=== PATIENT | male | born 1960 | race Caucasian/White ===

== ENCOUNTER → 2016-10-26 | Outpatient (CLI) | payer MEDICARE, OTHER ==
--- NOTE | 2016-10-26 14:32 | XR ---
EXAMINATION TYPE: XR lumbosacral spine min 4V DATE OF EXAM ORDERED: 10/26/2016 2:24 PM HISTORY: M54.17 radiculopathy. COMPARISON: None. FINDINGS: Vertebral body height and alignment are maintained. There is no evidence of spondylolysis or spondylolisthesis. There is hypertrophic spondylosis at L3-4, L4-5 and L5-S1. There is spondylosis deformans present at L3-4. The pedicles are intact. The facets are unremarkable. Note is made of calcification of the [place] aorta. IMPRESSION: 1. NO ACUTE OSSEOUS LESION. 2. DEGENERATIVE CHANGE.
== END | disposition home or self-care (01) ==
LOC: RADXRMAIN 14:06
PROVIDERS: ATTEND Internal Medicine
DX: M47.27 Other spondylosis with radiculopathy, lumbosacral region (principal)
CPT/HCPCS: 72110

== ENCOUNTER 2017-10-21 14:32 | Emergency (ER) | payer MEDICARE, OTHER ==
[2017-10-21 15:23] VITALS: TEMP 97.6
[2017-10-21 16:01] LABS: Basophils % (A) 1 %; Eosinophils # (A) 0.1 k/uL (0-0.7); Eosinophils % (A) 1 %; HCT 43.7 % (39.0-53.0); HGB 14.6 gm/dL (13.0-17.5); Lymphocytes # (A) 1.7 k/uL (1.0-4.8); Lymphocytes % (A) 21 %; MCHC 33.3 g/dL (31.0-37.0); MCV 83.8 fL (80.0-100.0); Mean Platelet Volume 7.7; Monocytes # (A) 0.5 k/uL (0-1.0); Monocytes % (A) 6 %; Neutrophils # (A) 5.9 k/uL (1.3-7.7); Neutrophils % (A) 70 %; Platelet Count 304 k/uL (150-450); RBC 5.21 m/uL (4.30-5.90); WBC 8.4 k/uL (3.8-10.6)
[2017-10-21 16:04] LABS: Appearance,Urine Clear (Clear); Bilirubin,Urine Negative (Negative); Blood,Urine Negative (Negative); Color,Urine Yellow; Glucose,Urine (UA) 4+ (Negative); Ketones,Urine Negative (Negative); Leukocyte Esterase,Urine Negative (Negative); Nitrite,Urine Negative (Negative); PH, Urine 5.5 (5.0-8.0); Protein,Urine Trace (Negative); Specific Gravity,Urine 1.029 (1.001-1.035); Urobilinogen,Urine <2.0 mg/dL (<2.0)
--- NOTE | 2017-10-21 16:05 | XR ---
EXAMINATION TYPE: XR chest 2V DATE OF EXAM: 10/21/2017 COMPARISON: 12/10/2015 HISTORY: Chest and abdominal pain TECHNIQUE: Frontal and lateral views of the chest are obtained. FINDINGS: Median sternotomy wires, left apical surgical clips, and cervical spine fusion device are present. Osseous structures are grossly intact. Cardia mediastinal silhouette is within normal limits . No focal consolidation, pleural effusion or pneumothorax is seen. IMPRESSION: No acute cardiopulmonary process.
--- NOTE | 2017-10-21 16:06 | XR ---
EXAMINATION TYPE: XR KUB DATE OF EXAM: 10/21/2017 CLINICAL HISTORY: Abdominal pain TECHNIQUE: Single view abdominal radiograph was obtained in upright position COMPARISON: None. FINDINGS: Scattered gas is seen in non-distended small bowel loops. Gas and fecal material is seen in non-distended colon. There is no visceromegaly, pneumoperitoneum, or abnormal calcification appr eciated. The lung bases are clear and the osseous structures are intact. IMPRESSION: Nonobstructive bowel gas pattern.
[2017-10-21 16:10] LABS: ALT 30 U/L (21-72); AST 23 U/L (17-59); Albumin 4.3 g/dL (3.5-5.0); Alkaline Phosphatase 113 U/L (38-126); Amylase 72 U/L (30-110); Anion Gap 16 mmol/L; Blood Urea Nitrogen 17 mg/dL (9-20); Calcium 9.6 mg/dL (8.4-10.2); Carbon Dioxide 25 mmol/L (22-30); Chloride 103 mmol/L (98-107); Glucose 201 mg/dL (74-99); Lipase 220 U/L (23-300); Sodium 144 mmol/L (137-145); Total Bilirubin 0.3 mg/dL (0.2-1.3); Total Protein 7.1 g/dL (6.3-8.2)
[2017-10-21 16:13] LABS: Prothrombin Time 9.6 sec (9.0-12.0)
[2017-10-21 16:16] LABS: Creatine Kinase 80 U/L (55-170)
[2017-10-21 16:20] LABS: Partial Thromboplastin Time 21.9 sec (22.0-30.0)
[2017-10-21 16:28] LABS: Creatine Kinase MB 1.4 ng/mL (0.0-2.4); Troponin I <0.012 ng/mL (0.000-0.034)
--- NOTE | 2017-10-21 17:18 | ED ---
General Adult HPI - General Chief complaint: Abdominal Pain Stated complaint: abdominal pain/med refill Time Seen by Provider: 10/21/17 16:54 Source: patient, RN notes reviewed Mode of arrival: ambulatory Limitations: no limitations - History of Present Illness Initial comments: This a 56-year-old male presents emergency Department with multiple complaints. Patient primarily has been out of all his medications and states his been having issues. Patient states he has upcoming appointments with cardiology, pulmonology, psychiatric services waiting to see PCP. [place] which nobody accepts. Patient states that he is major complaint is as reflux. Patient states no takes Zantac has not been taking it. Patient denies any chest pain he's had some intermittent shortness of breath with states that it's much better today. He denies any suicidal or homicidal ideation. Patient states that his been managing off his medications but would like to be restarted. - Related Data Home Medications Medication Instructions Recorded Confirmed Albuterol Inhaler [Ventolin Hfa 2 puff INHALATION RT-Q6H PRN 12/03/15 10/21/17 Inhaler] Albuterol Nebulized [Ventolin 2.5 mg INHALATION RT-TID PRN 12/03/15 10/21/17 Nebulized] Aspirin 81 mg PO DAILY 12/03/15 10/21/17 Bumetanide [Bumex] 1 mg PO BID 12/03/15 10/21/17 Ramipril [Altace] 1.25 mg PO HS 12/03/15 10/21/17 Atorvastatin [Lipitor] 80 mg PO HS 10/21/17 10/21/17 Fluticasone/Salmeterol [Advair 1 inhalation PO RT-BID 10/21/17 10/21/17 250-50 Diskus] HYDROcodone/APAP 7.5-325MG [Louann 1 tab PO TID PRN 10/21/17 10/21/17 7.5-325] Magnesium Oxide [Mag-Ox] 400 mg PO HS 10/21/17 10/21/17 Tiotropium 18 Mcg/Puff [Spiriva] 1 cap INHALATION RT-BID 10/21/17 10/21/17 Topiramate [Topamax] 25 mg PO BID 10/21/17 10/21/17 Previous Rx's Medication Instructions Recorded Divalproex ER [Depakote ER] 500 mg PO BID #28 tab.er.24h 10/21/17 Levothyroxine Sodium [Synthroid] 25 mcg PO DAILY #14 tab 10/21/17 Metoprolol Tartrate [Lopressor] 25 mg PO BID #28 tab 10/21/17 Ramipril 1.25 mg PO HS #14 capsule 10/21/17 Ranitidine HCl [Zantac] 150 mg PO BID #28 tablet 10/21/17 Sertraline [Zoloft] 100 mg PO HS #14 tab 10/21/17 Tamsulosin HCl [Flomax] 0.4 mg PO DAILY #14 cap.er.24h 10/21/17 amLODIPine [Norvasc] 5 mg PO DAILY #14 tab 10/21/17 clonazePAM [KlonoPIN] 1 mg PO TID #10 tab 10/21/17 metFORMIN HCL [Glucophage] 500 mg PO BID #28 tab 10/21/17 Allergies Allergy/AdvReac Type Severity Reaction Status Date / Time warfarin Allergy Rash/Hives Verified 10/21/17 17:16 Review of Systems ROS Statement: Those systems with pertinent positive or pertinent negative responses have been documented in the HPI. ROS Other: All systems not noted in ROS Statement are negative. Past Medical History Past Medical History: Heart Failure, COPD, Diabetes Mellitus, Hyperlipidemia, Hypertension Additional Past Medical History / Comment(s): Diverticulosis History of Any Multi-Drug Resistant Organisms: None Reported Past Surgical History: Coronary Bypass/CABG Additional Past Surgical History / Comment(s): carpal tunnel neck surg, pulmonary lobes remove bilateral Past Anesthesia/Blood Transfusion Reactions: No Reported Reaction Past Psychological History: Anxiety, Bipolar Smoking Status: Former smoker Past Alcohol Use History: None Reported Past Drug Use History: None Reported General Exam Limitations: no limitations General appearance: alert, in no apparent distress Head exam: Present: atraumatic, normocephalic, normal inspection Eye exam: Present: normal appearance, PERRL, EOMI. Absent: scleral icterus, conjunctival injection, periorbital swelling ENT exam: Present: normal exam, normal oropharynx, mucous membranes moist Neck exam: Present: normal inspection, full ROM. Absent: tenderness, meningismus, lymphadenopathy Respiratory exam: Present: normal lung sounds bilaterally. Absent: respiratory distress, wheezes, rales, rhonchi, stridor Cardiovascular Exam: Present: regular rate, normal rhythm, normal heart sounds. Absent: systolic murmur, diastolic murmur, rubs, gallop, clicks GI/Abdominal exam: Present: soft, normal bowel sounds. Absent: distended, tenderness, guarding, rebound, rigid Skin exam: Present: warm, dry, intact, normal color. Absent: rash Course Vital Signs 10/21/17 10/21/17 15:19 16:59 Temperature 97.6 F Pulse Rate 67 70 Respiratory 18 20 Rate Blood Pressure 142/81 190/101 O2 Sat by Pulse 99 99 Oximetry Medical Decision Making - Medical Decision Making 56-year-old male present emergency from for multiple complaints. Patient primarily needs medication refills will be given a short prescription at this time. Patient lab review shows mild hyperglycemia, glucose noted in the urine. Patient has close follow-up and will be given on-call primary care physician. Return parameters were discussed. - Lab Data Result diagrams: 10/21/17 15:30 10/21/17 15:30 Lab Results 10/21/17 10/21/17 10/21/17 Range/Units 15:30 15:30 15:30 WBC 8.4 (3.8-10.6) k/uL RBC 5.21 (4.30-5.90) m/uL Hgb 14.6 (13.0-17.5) gm/dL Hct 43.7 (39.0-53.0) % MCV 83.8 (80.0-100.0) fL MCH 28.0 (25.0-35.0) pg MCHC 33.3 (31.0-37.0) g/dL RDW 14.0 (11.5-15.5) % Plt Count 304 (150-450) k/uL Neutrophils % 70 % Lymphocytes % 21 % Monocytes % 6 % Eosinophils % 1 % Basophils % 1 % Neutrophils # 5.9 (1.3-7.7) k/uL Lymphocytes # 1.7 (1.0-4.8) k/uL Monocytes # 0.5 (0-1.0) k/uL Eosinophils # 0.1 (0-0.7) k/uL Basophils # 0.0 (0-0.2) k/uL PT (9.0-12.0) sec INR (<1.2) APTT (22.0-30.0) sec Sodium 144 (137-145) mmol/L Potassium 4.0 (3.5-5.1) mmol/L Chloride 103 (98-107) mmol/L Carbon Dioxide 25 (22-30) mmol/L Anion Gap 16 mmol/L BUN 17 (9-20) mg/dL Creatinine 0.90 (0.66-1.25) mg/dL Est GFR (CKD-EPI)AfAm >90 (>60 ml/min/1.73 sqM) Est GFR (CKD-EPI)NonAf >90 (>60 ml/min/1.73 sqM) Glucose 201 H (74-99) mg/dL Calcium 9.6 (8.4-10.2) mg/dL Total Bilirubin 0.3 (0.2-1.3) mg/dL AST 23 (17-59) U/L ALT 30 (21-72) U/L Alkaline Phosphatase 113 (38-126) U/L Total Creatine Kinase 80 (55-170) U/L CK-MB (CK-2) 1.4 (0.0-2.4) ng/mL CK-MB (CK-2) Rel Index 1.8 Troponin I <0.012 (0.000-0.034) ng/mL Total Protein 7.1 (6.3-8.2) g/dL Albumin 4.3 (3.5-5.0) g/dL Amylase 72 (30-110) U/L Lipase 220 (23-300) U/L Urine Color Urine Appearance (Clear) Urine pH (5.0-8.0) Ur Specific [place] (1.001-1.035) Urine Protein (Negative) Urine Glucose (UA) (Negative) Urine Ketones (Negative) Urine Blood (Negative) Urine Nitrite (Negative) Urine Bilirubin (Negative) Urine Urobilinogen (<2.0) mg/dL Ur Leukocyte Esterase (Negative) 10/21/17 10/21/17 Range/Units 15:30 15:38 WBC (3.8-10.6) k/uL RBC (4.30-5.90) m/uL Hgb (13.0-17.5) gm/dL Hct (39.0-53.0) % MCV (80.0-100.0) fL MCH (25.0-35.0) pg MCHC (31.0-37.0) g/dL RDW (11.5-15.5) % Plt Count (150-450) k/uL Neutrophils % % Lymphocytes % % Monocytes % % Eosinophils % % Basophils % % Neutrophils # (1.3-7.7) k/uL Lymphocytes # (1.0-4.8) k/uL Monocytes # (0-1.0) k/uL Eosinophils # (0-0.7) k/uL Basophils # (0-0.2) k/uL PT 9.6 (9.0-12.0) sec INR 1.0 (<1.2) APTT 21.9 L (22.0-30.0) sec Sodium (137-145) mmol/L Potassium (3.5-5.1) mmol/L Chloride (98-107) mmol/L Carbon Dioxide (22-30) mmol/L Anion Gap mmol/L BUN (9-20) mg/dL Creatinine (0.66-1.25) mg/dL Est GFR (CKD-EPI)AfAm (>60 ml/min/1.73 sqM) Est GFR (CKD-EPI)NonAf (>60 ml/min/1.73 sqM) Glucose (74-99) mg/dL Calcium (8.4-10.2) mg/dL Total Bilirubin (0.2-1.3) mg/dL AST (17-59) U/L ALT (21-72) U/L Alkaline Phosphatase (38-126) U/L Total Creatine Kinase (55-170) U/L CK-MB (CK-2) (0.0-2.4) ng/mL CK-MB (CK-2) Rel Index Troponin I (0.000-0.034) ng/mL Total Protein (6.3-8.2) g/dL Albumin (3.5-5.0) g/dL Amylase (30-110) U/L Lipase (23-300) U/L Urine Color Yellow Urine Appearance Clear (Clear) Urine pH 5.5 (5.0-8.0) Ur Specific [place] 1.029 (1.001-1.035) Urine Protein Trace H (Negative) Urine Glucose (UA) 4+ H (Negative) Urine Ketones Negative (Negative) Urine Blood Negative (Negative) Urine Nitrite Negative (Negative) Urine Bilirubin Negative (Negative) Urine Urobilinogen <2.0 (<2.0) mg/dL Ur Leukocyte Esterase Negative (Negative) Disposition Clinical Impression: GERD (gastroesophageal reflux disease), Bipolar disorder, COPD (chronic obstructive pulmonary disease), Medication refill Disposition: HOME SELF-CARE Condition: Stable Instructions: Gastroesophageal Reflux Disease (ED) Additional Instructions: Please return to the Emergency Department if symptoms worsen or any other concerns. Prescriptions: amLODIPine [Norvasc] 5 mg PO DAILY #14 tab clonazePAM [KlonoPIN] 1 mg PO TID #10 tab Divalproex ER [Depakote ER] 500 mg PO BID #28 tab.er.24h Levothyroxine Sodium [Synthroid] 25 mcg PO DAILY #14 tab metFORMIN HCL [Glucophage] 500 mg PO BID #28 tab Metoprolol Tartrate [Lopressor] 25 mg PO BID #28 tab Ramipril 1.25 mg PO HS #14 capsule Ranitidine HCl [Zantac] 150 mg PO BID #28 tablet Sertraline [Zoloft] 100 mg PO HS #14 tab Tamsulosin HCl [Flomax] 0.4 mg PO DAILY #14 cap.er.24h Is patient prescribed a controlled substance at d/c from ED?: Yes If prescribed controlled substance>3 days was MAPS reviewed?: No When asked, does pt state using other controlled substances?: No Referrals: Mami Gonzalez MD [STAFF PHYSICIAN] - 1-2 days Time of Disposition: 17:18
[2017-10-21 17:41] VITALS: BP 165/89; PULSE 78; RESP 18
== END 2017-10-21 17:40 | disposition home or self-care (01) ==
LOC: EC 14:32
DX: K21.9 Gastro-esophageal reflux disease without esophagitis (principal); F31.9 Bipolar disorder, unspecified; J44.9 Chronic obstructive pulmonary disease, unspecified; Z76.0 Encounter for issue of repeat prescription; I11.0 Hypertensive heart disease with heart failure; I50.9 Heart failure, unspecified; E11.9 Type 2 diabetes mellitus without complications; F41.9 Anxiety disorder, unspecified; Z87.891 Personal history of nicotine dependence; Z79.82 Long term (current) use of aspirin; Z79.51 Long term (current) use of inhaled steroids; Z79.899 Other long term (current) drug therapy; Z88.8 Allergy status to other drugs, medicaments and biological substances; Z95.1 Presence of aortocoronary bypass graft
CPT/HCPCS: 36415; 71046; 74018; 80053; 81003; 82150; 82550; 82553; 83690; 84484; 85025; 85610; 85730; 99284

== ENCOUNTER → 2018-03-11 | Outpatient (CLI) | payer MEDICARE, OTHER ==
[2018-03-11 09:03] LABS: Albumin 3.9 g/dL (3.5-5.0); Bilirubin, Delta 0.2 mg/dL (0.0-0.2); Bilirubin,Unconjugated 0.1 mg/dL (0.0-1.1); Total Bilirubin 0.3 mg/dL (0.2-1.3)
[2018-03-11 09:09] LABS: Valproic Acid (Depakene) 51.9 ug/mL
[2018-03-11 09:21] LABS: T4, Free (Free Thyroxine) 1.13 ng/dL (0.78-2.19)
[2018-03-11 19:04] LABS: Hemoglobin A1C 7.3 % (4.0-6.0)
== END | disposition home or self-care (01) ==
LOC: LABWHC1 07:31
PROVIDERS: ATTEND Psychiatry & Neurology Psychiatry
DX: Z51.81 Encounter for therapeutic drug level monitoring (principal); Z79.899 Other long term (current) drug therapy
CPT/HCPCS: 36415; 80061; 80076; 80164; 82947; 83036; 84439; 84443

== ENCOUNTER → 2018-03-20 | Outpatient (CLI) | payer MEDICARE, OTHER ==
[2018-03-20 11:45] LABS: Basophils # (A) 0.1 k/uL (0-0.2); Basophils % (A) 1 %; Eosinophils # (A) 0.2 k/uL (0-0.7); Eosinophils % (A) 3 %; HGB 13.2 gm/dL (13.0-17.5); Hypochromasia Moderate; Lymphocytes # (A) 1.6 k/uL (1.0-4.8); Lymphocytes % (A) 23 %; MCH 27.9 pg (25.0-35.0); MCHC 30.7 g/dL (31.0-37.0); MCV 90.7 fL (80.0-100.0); Mean Platelet Volume 7.5; Monocytes # (A) 0.6 k/uL (0-1.0); Monocytes % (A) 9 %; Neutrophils # (A) 4.2 k/uL (1.3-7.7); Neutrophils % (A) 61 %; Platelet Count 215 k/uL (150-450); RBC 4.74 m/uL (4.30-5.90); RDW 14.5 % (11.5-15.5); WBC 6.9 k/uL (3.8-10.6)
[2018-03-21 15:28] LABS: Alt. alternata IgE Class CLASS 0; Alternaria alternata IgE <0.35 kU/L (<0.35); Asperg. fumagatus IgE <0.35 kU/L (<0.35); Asperg. fumagatus IgE Class CLASS 0; Bermuda Grass IgE <0.35 kU/L (<0.35); Birch(Com.Silvr) IgE <0.35 kU/L (<0.35); Birch(Com.Silvr) IgE Class CLASS 0; Cat Epith & Dander IgE <0.35 kU/L (<0.35); Cat Epith & Dander IgE Class CLASS 0; Clad herbarum IgE <0.35 kU/L (<0.35); Cockroach IgE <0.35 kU/L (<0.35); Cottonwood IgE <0.35 kU/L (<0.35); Dermato. Pteronyssinus IgE <0.35 kU/L (<0.35); Dermato. farinae IgE <0.35 kU/L (<0.35); Dermato. farinae IgE Class CLASS 0; Dog Dander IgE <0.35 kU/L (<0.35); Elm IgE <0.35 kU/L (<0.35); Maple (Box Elder) IgE <0.35 kU/L (<0.35); Maple (Box Elder) IgE Class CLASS 0; Mountain Cedar IgE <0.35 kU/L (<0.35); Mountain Cedar IgE Class CLASS 0; Mouse Urine IgE Class CLASS 0; Nettle IgE <0.35 kU/L (<0.35); Nettle IgE Class CLASS 0; Oak IgE <0.35 kU/L (<0.35); Penicillium notatum IgE Class CLASS 0; Rough Marshelder IgE <0.35 kU/L (<0.35); Rough Marshelder IgE Class CLASS 0; Timothy Grass IgE <0.35 kU/L (<0.35); White Ash IgE Class CLASS 0
== END | disposition home or self-care (01) ==
LOC: LABWHC1 10:31
PROVIDERS: ATTEND Internal Medicine Pulmonary Disease
DX: J45.909 Unspecified asthma, uncomplicated (principal)
CPT/HCPCS: 36415; 82103; 82104; 82785; 85025; 86001; 86003; 86606; 86609

== ENCOUNTER → 2018-04-23 | Outpatient (CLI) | payer MEDICARE, OTHER ==
[2018-04-24 03:37] LABS: T4, Free (Free Thyroxine) 1.2 ng/dL (0.80-1.80)
[2018-04-24 03:56] LABS: LDL Cholesterol,Calculated 99.6 mg/dL (0.0-131.0); Lithium 0.4 mmol/L (1.0-1.2); VLDL Calculation 47.4 mg/dL (5.00-40.00)
[2018-04-24 05:44] LABS: Hemoglobin A1C 8.7 % (4.0-6.0)
== END | disposition home or self-care (01) ==
LOC: LABWHC1 14:26
PROVIDERS: ATTEND Internal Medicine Infectious Disease
DX: Z51.81 Encounter for therapeutic drug level monitoring (principal); Z79.899 Other long term (current) drug therapy
CPT/HCPCS: 36415; 80061; 80178; 82565; 82947; 83036; 84439; 84443; 84520

== ENCOUNTER → 2022-05-07 | Outpatient (CLI) | payer MEDICARE, OTHER ==
--- NOTE | 2022-05-07 09:15 | CTL ---
EXAMINATION TYPE: CT Low Dose Lung DATE OF EXAM: 05/07/2022 8:48 AM CLINICAL INDICATION:Male, 61 years old with history of Z87.891 NICOTINE DEPENDENCE; smoker quit 9 mon ths ago , history of tobacco use. COMPARISON: None TECHNIQUE: Multiple axial non-contrast scans were obtained from approximately the lung apices through the upper abdomen. Coronal and sagittal reformatted images were obtained. Low dose technique was uti lized. CT DLP: 124.9 mGycm, Automated exposure control for dose reduction was used. CT Contrast: Contrast used: None Oral contrast used: None FINDINGS: ======== Lack of intravenous contrast and low dose technique limits the evaluation of the vascular and soft ti ssue structures. LUNGS: There is trace right pleural effusion with paraseptal and centrilobular emphysema changes most proximal lung apices. Subpleural calcified scarring noted. Nodules: RUL: None. RML: None. RLL: None. DEYANIRA: None. LLL: None. AIRWAYS: Unremarkable. LOWER NECK: Grossly unremarkable. LYMPH NODES: No grossly enlarged lymph nodes in the thorax. MEDIASTINUM?AND REBECA: Grossly unremarkable. HEART AND VASCULAR STRUCTURES: There is mildly enlarged for size. There is moderate to severe coronar y artery atherosclerosis. PLEURA & PERICARDIUM: Grossly unremarkable. CHEST WALL: Grossly unremarkable. MUSCULOSKELETAL: Sternotomy wires are present. Multilevel disc degeneration changes throughout the sp ine. UPPER ABDOMEN: Grossly unremarkable. IMPRESSION: 1. No clinically significant pulmonary nodules. 2. Moderate to severe coronary artery atherosclerosis. 3. Trace right pleural effusion 4. Mild centrilobular and paraseptal emphysema changes in the lung apices. CT LUNG RAD AND CT CHEST RECOMMENDATION: Lung-Rad 1 Negative: Continue annual screening with LDCT in 12 months. S Modifier (other clinically significant findings): Moderate to severe coronary artery atherosclerosi s.
== END | disposition home or self-care (01) ==
LOC: RADCTMAIN 08:03
PROVIDERS: ATTEND Internal Medicine Critical Care Medicine
DX: Z12.2 Encounter for screening for malignant neoplasm of respiratory organs (principal); I25.10 Atherosclerotic heart disease of native coronary artery without angina pectoris; J90 Pleural effusion, not elsewhere classified; J43.9 Emphysema, unspecified; Z87.891 Personal history of nicotine dependence
CPT/HCPCS: 71271